=== PATIENT | male | born 1980 | race African-American/Black ===

== ENCOUNTER 2020-09-02 13:06 | Observation (INO) ==
--- NOTE | 2020-09-02 14:15 | XRay Report ---
XR chest 1V portable CLINICAL HISTORY: Atypical chest pain. COMPARISON STUDY: No previous studies for comparison. FINDINGS: Lung volumes are normal. Lungs are clear. There is no pneumothorax or pleural effusion. Car diac size is normal. Mediastinal contours are normal. There is no evidence for pulmonary edema. IMPRESSION: No acute cardiopulmonary findings. ACT 112: Negative or not required by law. Electronically signed by: Hair Sow M.D. 09/02/2020 2:14 PM
[2020-09-02 14:28] LABS: Basophils # (auto) 0.03 K/uL (0-0.2); Basophils % (auto) 0.4 %; Eosinophils # (auto) 0.21 K/uL (0-0.5); Eosinophils % (auto) 2.5 %; Hemoglobin 14.3 g/dL (14.0-18.0); Immature Granulocytes # (auto) 0.02 K/uL (0.00-0.02); Immature Granulocytes % (auto) 0.2 %; Lymphocytes # (auto) 3.03 K/uL (1.2-3.4); Lymphocytes % (auto) 35.9 %; Mean Corpuscular Hemoglobin 30.8 pg (25-34); Mean Corpuscular Volume 90.5 fL (80-100); Mean Platelet Volume 10.1 fL (7.4-10.4); Monocytes # (auto) 0.67 K/uL (0.11-0.59); Monocytes % (auto) 7.9 %; Neutrophils # (auto) 4.48 K/uL (1.4-6.5); Neutrophils % (auto) 53.1 %; Platelet Count 361 K/uL (130-400); RDW Coefficient of Variation 13.1 % (11.5-14.5); RDW Standard Deviation 43.5 fL (36.4-46.3); Red Blood Count 4.64 M/uL (4.7-6.1); White Blood Count 8.44 K/uL (4.8-10.8)
[2020-09-02] MEDS ORDERED: ASPIRIN 81 MG CHEW PO STA (14:33)
--- NOTE | 2020-09-02 14:40 | Emergency Department Note ---
History of Present Illness General Chief complaint: Chest Pain Stated complaint: CHEST [id number] HEADEDNESS-VERTIGO Time Seen by Provider: 09/02/20 14:15 Source: patient and family (Colleague is at the bedside and acted as the compliance administrator. I offered to use the language line but he would rather use his friend) Mode of arrival: ambulatory Limitations: no limitations History of Present Illness Maximum Pain Intensity: 3 This patient is a 40-year-old male who comes in after having an episode of chest pain that occurred around 11:00. 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 He said it felt like his vision was going in and out he felt lightheaded and dizzy like he might pass out he got extremely diaphoretic and short of breath. There is no radiation of the chest. He is feeling significantly better at present and appears in no distress saying he has 1 out of 10 chest pain he was seen at [facility] initially there and they got an EKG and worried that his blood pressure was high and sent him up here as well. The pain is not been pleuritic. He said no trauma or injury. He has had no Covid known or Covid vaccine. No lower extremity pain or swelling. No history of any similar. He is never had any cardiac work-up. Home Medications Medication Instructions Recorded Confirmed Type No Known Home Medications 09/02/20 09/02/20 History Allergies Allergy/AdvReac Type Severity Reaction Status Date / Time No Known Allergies Allergy Verified 09/02/20 15:10 Past Med/Surg History Medical History (Updated 09/02/20 @ 17:11 by Dameon Diaz MD) Medical history non-contributory Surgical History (Updated 09/02/20 @ 16:22 by KEITH Francisco) History of facial surgery Family History (Updated 09/02/20 @ 16:22 by KEITH Francisco) Father Coronary heart disease Diabetes Mother Coronary heart disease Hypertension Social History (Updated 09/02/20 @ 16:24 by KEITH Francisco) Smoking Status: Current every day smoker Tobacco Type: Cigarettes packs per day: 0.5; Hx Alcohol Use: Yes Preferred Language: Kiswahili Communication Tools: IPad Current Living Situation: Family Current Living Situation Comment: Lives in [place] current occupational status: employed current occupation: car painter Feels Safe at Home: Yes Immunizations: Past medical history-hypertension. Denies diabetes or increased cholesterol. No history of cardiac disease or blood clots Family historydenies cardiac disease in the family Social historyhe smokes 2 packs/week. Drinks occasionally. Denies drug use. He lives in [place]. Review of Systems A total of 10 systems reviewed and were otherwise negative Physical Exam Vital Signs Vital Signs - 24 hr 09/02/20 13:14 09/02/20 14:15 09/02/20 14:18 Temperature 36.6 C Temperature Source Temporal Artery Scan Pulse Rate 59 L 57 L Respiratory Rate 18 Blood Pressure 162/95 H Blood Pressure Mean 117 Pulse Oximetry 99 98 Oxygen Delivery Method Room Air Room Air Room Air Sepsis Recent Fever Within 48 Hours No Sepsis New/Unexplained Change in Mental Status No Sepsis Action Taken by Nursing No Action Required General: Well developed well nourished middle-aged male who appears in no acute distress, breathing comfortably on room air. Normal speech HEENT: Normal cephalic atraumatic. Pupils are equal round and reactive to light. Extraocular movements are intact. Oropharynx is pink with moist mucous membranes. No swelling of the mouth lips or tongue. Neck: Supple with a midline trachea. No meningeal signs or stiffness, no JVD or bruits. No Stridor. Chest: Clear to auscultation bilaterally. No wheezes or rhonchi. No increased work of breathing. Heart: Regular rate and rhythm without murmurs or gallops. Abdomen: Soft nontender, nondistended without rebound guarding or rigidity. Extremities: No cyanosis clubbing or edema. No calf tenderness or assymetry Spine/Back. Non tender to palpation. No CVA tenderness Skin: Good turgor without rashes. Neurologic exam: Cranial nerves two through 12 are intact. Motor and sensation are intact and symmetrical throughout. Course Administered Medications Discontinued Medications Aspirin (Aspirin 81 Mg Chew) 324 mg PO NOW STA Stop: 09/02/20 14:34 Last Admin: 09/02/20 14:43 Dose: 324 mg Documented by: [id number] Hydralazine HCl (Hydralazine Hcl 20 Mg/Ml Vial) 5 mg IV NOW ONE Stop: 09/02/20 16:33 Last Admin: 09/02/20 17:06 Dose: 5 mg Documented by: [id number] Potassium Chloride (Potassium Chloride Crtab 20 Meq Tabcr) 40 meq PO NOW STA Stop: 09/02/20 15:57 Last Admin: 09/02/20 17:07 Dose: 40 meq Documented by: [id number] Medical Decision Making Differential Diagnosis Acute coronary syndrome, arrhythmia, PE, dehydration, rhabdo, electrolyte or met abolic abnormality, Covid Medical Records Attestation: I reviewed the patient's medical records. Home Medications Current Medication List: was personally reviewed by me Laboratory Data Attestation: I reviewed the patient's lab results. Result diagrams: 09/02/20 14:17 09/02/20 14:17 Lab Results 09/02/20 09/02/20 09/02/20 Range/Units 14:17 14:17 14:17 WBC 8.44 (4.8-10.8) K/uL RBC 4.64 L (4.7-6.1) M/uL Hgb 14.3 (14.0-18.0) g/dL Hct 42.0 (42-52) % MCV 90.5 (80-100) fL MCH 30.8 (25-34) pg MCHC 34.0 (32-36) g/dL RDW Std Deviation 43.5 (36.4-46.3) fL RDW Coeff of Larisa 13.1 (11.5-14.5) % Plt Count 361 (130-400) K/uL MPV 10.1 (7.4-10.4) fL Immature Gran % (Auto) 0.2 % Neut % (Auto) 53.1 % Lymph % (Auto) 35.9 % [place] % (Auto) 7.9 % Eos % (Auto) 2.5 % Baso % (Auto) 0.4 % Neut # (Auto) 4.48 (1.4-6.5) K/uL Lymph # (Auto) 3.03 (1.2-3.4) K/uL [place] # (Auto) 0.67 H (0.11-0.59) K/uL Eos # (Auto) 0.21 (0-0.5) K/uL Baso # (Auto) 0.03 (0-0.2) K/uL Immature Gran # (Auto) 0.02 (0.00-0.02) K/uL PT 9.6 (9.0-12.0) Seconds INR 0.9 (0.9-1.1) APTT 28.5 (21.0-31.0) Seconds PTT Ratio 1.1 Sodium 141 (136-145) mmol/L Potassium 3.4 L (3.5-5.1) mmol/L Chloride 105 (98-107) mmol/L Carbon Dioxide 33 H (21-32) mmol/L Anion Gap 3.0 (3-11) BUN 15 (7-18) mg/dl Creatinine 1.05 (0.6-1.4) mg/dl Est Cr Clr Drug Dosing Not Reportable Est GFR ( Amer) 101.7 Est GFR (Non-Af Amer) 87.7 BUN/Creatinine Ratio 14.4 (10-20) Glucose 123 H (70-99) mg/dl Calcium 9.1 (8.5-10.1) mg/dl Magnesium 2.2 (1.8-2.4) mg/dl Total Bilirubin 0.3 (0.2-1) mg/dl AST 34 (15-37) U/L ALT 35 (12-78) U/L Alkaline Phosphatase 88 (45-117) U/L Troponin I < 0.015 (0-0.045) ng/ml Total Protein 7.9 (6.4-8.2) gm/dl Albumin 3.9 (3.4-5.0) gm/dl Globulin 4.0 (2.5-4.0) gm/dl Albumin/Globulin Ratio 1.0 (0.9-2) COVID-19 Eval Order SARS-CoV-2 (PCR) (Negative) Influenza Type A (PCR) (Neg) Influenza Type B (PCR) (Neg) RSV (RT-PCR) (Neg) 09/02/20 09/02/20 09/02/20 Range/Units 14:17 14:45 14:45 WBC (4.8-10.8) K/uL RBC (4.7-6.1) M/uL Hgb (14.0-18.0) g/dL Hct (42-52) % MCV (80-100) fL MCH (25-34) pg MCHC (32-36) g/dL RDW Std Deviation (36.4-46.3) fL RDW Coeff of Larisa (11.5-14.5) % Plt Count (130-400) K/uL MPV (7.4-10.4) fL Immature Gran % (Auto) % Neut % (Auto) % Lymph % (Auto) % [place] % (Auto) % Eos % (Auto) % Baso % (Auto) % Neut # (Auto) (1.4-6.5) K/uL Lymph # (Auto) (1.2-3.4) K/uL [place] # (Auto) (0.11-0.59) K/uL Eos # (Auto) (0-0.5) K/uL Baso # (Auto) (0-0.2) K/uL Immature Gran # (Auto) (0.00-0.02) K/uL PT (9.0-12.0) Seconds INR (0.9-1.1) APTT (21.0-31.0) Seconds PTT Ratio Sodium (136-145) mmol/L Potassium (3.5-5.1) mmol/L Chloride (98-107) mmol/L Carbon Dioxide (21-32) mmol/L Anion Gap (3-11) BUN (7-18) mg/dl Creatinine (0.6-1.4) mg/dl Est Cr Clr Drug Dosing Est GFR ( Amer) Est GFR (Non-Af Amer) BUN/Creatinine Ratio (10-20) Glucose (70-99) mg/dl Calcium (8.5-10.1) mg/dl Magnesium Cancelled (1.8-2.4) mg/dl Total Bilirubin (0.2-1) mg/dl AST (15-37) U/L ALT (12-78) U/L Alkaline Phosphatase (45-117) U/L Troponin I (0-0.045) ng/ml Total Protein (6.4-8.2) gm/dl Albumin (3.4-5.0) gm/dl Globulin (2.5-4.0) gm/dl Albumin/Globulin Ratio (0.9-2) COVID-19 Eval Order [facility]FluRsv at [facility] SARS-CoV-2 (PCR) NEGATIVE (Negative) Influenza Type A (PCR) Negative (Neg) Influenza Type B (PCR) Negative (Neg) RSV (RT-PCR) Negative (Neg) Imaging Data Attestation: I personally reviewed and interpreted this imaging study as fol lows: My Impression: Chest x-rayno acute infiltrate, failure, pneumothorax upon my interpretation Radiologist's Impression: Chest X-Ray 09/02/20 13:48 XR chest 1V portable CLINICAL HISTORY: Atypical chest pain. COMPARISON STUDY: No previous studies for comparison. FINDINGS: Lung volumes are normal. Lungs are clear. There is no pneumothorax or pleural effusion. Cardiac size is normal. Mediastinal contours are normal. There is no evidence for pulmonary edema. IMPRESSION: No acute cardiopulmonary findings. ACT 112: Negative or not required by law. Electronically signed by: Hair Sow M.D. 09/02/2020 2:14 PM ECG Data Attestation: I personally reviewed and interpreted this ECG as follows: Indication: + chest pain, + diaphoresis and + SOB/dyspnea Rate (beats per minute): 53 Rhythm: + sinus bradycardia ECG [place]: + Normal ECG ST segments: + T-wave inversions (Lateral) ECG Findings: no PACs and no PVCs Comparison ECG Date: no prior available MDM Narrative This patient comes in after having an episode of chest pain nausea and dizziness. His story is very concerning. He is a young healthy patient with hypertension and smoking as risk factors. I was concerned that his EKG shows some T wave inversions laterally. He has no ST segment elevations or depressions to suggest acute STEMI. His symptoms do not sound likely consistent with a PE as they are nonpleuritic and more typical. He was given aspirin 324 mg chewable. He was placed on a detail sergeant and multiple blood testing was obtained. IV access was established and chest x-ray and EKG were obtained. He was reassessed frequently. He is resting comfortably and appears in no distress. His chest x-ray is unremarkable does not show congestive heart failure, pneumonia, or pneumothorax. His EKG is concerning with the T wave inversions laterally however his troponin is not elevated. He has no signal electrolyte or metabolic abnormalities. Given his concerning story as well as his abnormal EKG, I do think he needs to be admitted/observe for further cardiac work-up and rule out. I have consulted Dr. Claudio Muhammad and his team to see the patient for these measures. Continuous cardiac monitoring: Due to the patient's chief complaint of chest pain he was placed on a detail sergeant and an order was placed in the electronic medical record. The patient was noted to be in sinus bradycardia with a rate of 55 Impression & Plan Chest pain, Acute electrocardiography changes, Diaphoresis, Dizziness, Lab test negative for COVID-19 virus Discharge Plan Visit Data Chief Complaint: Chest Pain Stated Complaint: CHEST [id number] HEADEDNESS-VERTIGO ED Provider: Dameon Diaz Discharge Problem: Chest pain, Acute electrocardiography changes, Diaphoresis, Dizziness, Lab test negative for COVID-19 virus Forms Stand Alone Forms: [facility] Prescriptions Prescriptions: No Action No Known Home Medications RF: 0 Discharge Problem: Chest pain Qualifiers: Chest pain type: precordial pain Qualified Code(s): R07.2 - Precordial pain
[2020-09-02 14:44] LABS: Alanine Aminotransferase 35 U/L (12-78); Albumin Level 3.9 gm/dl (3.4-5.0); Aspartate Aminotransferase 34 U/L (15-37); BUN Creatinine Ratio 14.4 (10-20); Blood Urea Nitrogen 15 mg/dl (7-18); Calcium 9.1 mg/dl (8.5-10.1); Carbon Dioxide 33 mmol/L (21-32); Chloride 105 mmol/L (98-107); Est GFR (African American) 101.7; Est GFR (Non-African American) 87.7; Glucose 123 mg/dl (70-99); Potassium 3.4 mmol/L (3.5-5.1); Sodium 141 mmol/L (136-145)
[2020-09-02 14:46] LABS: INR 0.9 (0.9-1.1); Partial Thromboplastin Ratio 1.1; Partial Thromboplastin Time 28.5 Seconds (21.0-31.0); Prothrombin Time 9.6 Seconds (9.0-12.0)
[2020-09-02 14:47] LABS: Bilirubin,Total 0.3 mg/dl (0.2-1); Total Protein 7.9 gm/dl (6.4-8.2)
[2020-09-02 14:49] LABS: Alkaline Phosphatase 88 U/L (45-117); Magnesium 2.2 mg/dl (1.8-2.4); Troponin I < 0.015 ng/ml (0-0.045)
[2020-09-02 15:31] LABS: Influenza A virus by PCR Negative (Neg); Influenza B virus by PCR Negative (Neg); RSV by PCR Negative (Neg); SARS CoV2 RNA(COVID-19) InHosp NEGATIVE (Negative)
--- NOTE | 2020-09-02 15:36 | History & Physical Report ---
Date of Service September 02, 2020 Assessment & Plan (1) Chest pain: Patient with risk factors of smoking, obesity, nonroutine medical care, HTN- with currently reproducible chest pain - Monitor telemetry, trend troponin I- next set will be long enough to be detected - ASA daily 81- for primary prevention - Blood pressure control overnight, IV hydralazine - BB not chosen as patient is bradycardic - ECG no comparison, nonspecific ST changes noted- ECG with troponins. - Pain free now - Stress test in the morning- NPO after midnight Risk factor modification - smoking cessation consult placed - Lipid panel pending in the morning- currently not on statin - HGBA1C in morning pending- likely type II not treated - BP control as above (2) HTN (hypertension): Likely long standing not controlled - ECHO to evaluate heart function and size - Hydralazine IV can tighten up dose and interval as needed - If difficult to control will add on Amlodipine 5mg PO - Will need PCP at [place] (3) Diaphoresis: Resolved- likely related to acute pain - no evidence of hypoperfusion on other organ symptoms - Skin is warm and dry (4) Obesity: No acute needs - education on diet, exercise and risk factor modification (5) Dizziness: Occurs frequently while working overhead - carotid artery Doppler - BP control, lipid panel, asa daily (6) Elevated glucose: Not followed and on no medications - HGB A1c in morning - fasting glucose in morning as patient will be NPO History of Present Illness Chief Complaint: Chest pain Primary Care Provider: NO PCP 40 YOM with unknown medical history, but smokes 2 packs of cigarettes a week, 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 His chest pain, dyspnea, blurred vision, and diaphoresis also all went away at the same time. He had to go up 6 flights of stairs to get to his work area this morning and has been doing this all week. He does get short of breath doing this and has to stop at least once to get there. The pain was sharp and stabbing in nature and was located under his left breast ~4-5 intercostal. He has not had this chest pain before. He normally has some shortness of breath secondary to a facial nasal surgery from an accident when he was younger. He can not lay flat at night as he gets short of breath and needs about 4-5 pillows to prop himself up. He notes his legs swelling up to lower third of calf at the end of the day, when he gets up in the morning they are normal again. He also induces that when he is working over head and looking up that he gets headache and the vision changes that he experienced today. He initially went to an urgent care, that referred him to the emergency room fo concerns for his BP. In the EMD the patient had a ECG, done, standard labs, and a chest x-ray. Hospitalist team was notified for admission. He is not on any medications, and does not have a PCP. Allergies Allergy/AdvReac Type Severity Reaction Status Date / Time No Known Allergies Allergy Verified 09/02/20 15:10 Home Medications Medication Instructions Recorded Confirmed Type No Known Home Medications 09/02/20 09/02/20 History amlodipine 5 mg PO DAILY #30 tab 09/03/20 Rx Past Med/Surg History Medical History (Updated 09/04/20 @ 00:09 by Chivo Ocampo) Medical history non-contributory Surgical History (Updated 09/02/20 @ 16:22 by KEITH Francisco) History of facial surgery Family History (Updated 09/02/20 @ 16:22 by KEITH Francisco) Father Coronary heart disease Diabetes Mother Coronary heart disease Hypertension Social History (Updated 09/02/20 @ 16:24 by KEITH Francisco) Smoking Status: Current every day smoker Tobacco Type: Cigarettes packs per day: 0.5; Cigarettes Per Day: 5; Hx Alcohol Use: Yes Hx Substance Use: No Preferred Language: Persian Communication Ability: Effective Communication Tools: IPad Command Center Officer Required: Yes Beliefs That Will Affect Care: None Current Living Situation: Family Current Living Situation Comment: Lives in [place] current occupational status: employed current occupation: house painter helper Feels Safe at Home: Yes Assistive Devices: None Review of Systems Review of Systems: REVIEW OF SYSTEMS: Constitutional: No fever, sweats or chills Eyes: (+) blurred vision this morning and when working overhead, No diplopia, no worsening or blurred vision ENT: normal hearing, no trouble swallowing Respiratory: (+) dyspnea at rest or on exertion, No cough, sputum, Cardiovascular: (+) chest pain, (-) tightness or palpitations Abdomen: No pain, nausea, vomiting, diarrhea or constipation Musculoskeletal: No joint pain, calf pain, swelling Neurologic: No weakness, numbness/tingling, or balance problems Psychiatric: No anxiety or depression Skin: No rash or itch Physical Exam Physical Exam: PHYSICAL EXAM: General: awake, alert, no apparent distress Head: Normocephalic, atraumatic ENT: PERRL, EOMI, no pharyngeal exudate, mucous membranes moist Neuro: AAO x 3, speech clear and appropriate, strength intact bilaterally 5/5, sensation intact and equal all extremities and dermatomes, no pronator drift Chest: equal rise and fall of the chest, no accessory muscle use, no heaves or thrills, Clear to auscultation, on room air, Cardiac: Chest pain reproducible with palpation at mammary fold intercostal, Regular rate and rhythm, telemetry reviewed, skin warm dry, cap refill <3 seconds, peripheral pulses +2 no JVD, no murmur, trace bilateral lower extremity edema. GI: NABS x 4 quadrants, soft, nontender to palpation, no rebound, guarding or tenderness : Spontaneously voiding, no pain, no CVA tenderness, Extremities: Normal inspection, no peripheral edema or erythema, calfs nontender to palpation Psych: Normal mood and affect Skin/extremities: no rash or erythema/ clubbing of fingernails Results & Data Results & Data ([facility]) Vital Signs (Past 12 Hours) Vital Signs Temp Pulse Resp BP Pulse Ox 09/02/20 14:15 57 L 98 09/02/20 13:14 36.6 C 59 L 18 162/95 H 99 Laboratory Results Abnormal lab results 09/02/20 09/02/20 Range/Units 14:17 14:17 RBC 4.64 L (4.7-6.1) M/uL [place] # (Auto) 0.67 H (0.11-0.59) K/uL Potassium 3.4 L (3.5-5.1) mmol/L Carbon Dioxide 33 H (21-32) mmol/L Glucose 123 H (70-99) mg/dl Diagnostic Findings XR chest 1V portable CLINICAL HISTORY: Atypical chest pain. COMPARISON STUDY: No previous studies for comparison. FINDINGS: Lung volumes are normal. Lungs are clear. There is no pneumothorax or pleural effusion. Cardiac size is normal. Mediastinal contours are normal. There is no evidence for pulmonary edema. IMPRESSION: No acute cardiopulmonary findings. Medications Administered Discontinued Medications Aspirin (Aspirin 81 Mg Chew) 324 mg PO NOW STA Stop: 09/02/20 14:34 Last Admin: 09/02/20 14:43 Dose: 324 mg Documented by: [id number] Additional Comments: Sinus bradycardia T wave abnormality, consider lateral ischemia Abnormal ECG Code Status & VTE Plan Code Status CODE: FULL VTE: Heparin 5000 subq TID VTE Prophylaxis Plan VTE Prophylaxis will be ordered: Yes Supervising Physician Co-Signing Physician Notes I personally saw and examined the patient. I verified all zaldivar points and agree with Jony PARKER with the following exceptions and/or additions: 40 year old male presents to the ER with chest pain. Severity 6/10. Associated diaphoresis. Chronically short of breath on exertion with associated orthopnea. O/E HS1+2, no murmurs, Chest CTAB, Abdo SNT, reproducible chest pain on palpation A/P Atypical chest pain - Currently pain free, serial troponins overnight, stress echo in AM if negative. HbA1C and lipid panel with Am labs. Hypertensive urgency - amlodipine 5mg PO daily, hydralazine PRN. PG Care Time/CCT Total # of Minutes Spent Total Time Spent with Patient: Total time spent is greater than 50% in coordination of care (as documented) at patient's floor/unit and/or counseling patient: Coding Level of Care Code 22335 OBS Care - Level 3 Medical Decision Making High Complexity Diagnoses Chest pain R07.2 Chest pain type: precordial pain HTN (hypertension) I10 Hypertension type: essential hypertension Diaphoresis R61 Obesity E66.09; Z68.30 Body mass index: BMI 30.0-30.9 Obesity classification: adult class 1 (BMI 30 - 34.9) Obesity type: due to excess calories Serious obesity comorbidity presence: without serious comorbidity Dizziness R42 Elevated glucose R73.09 (1) Chest pain Chest pain type: precordial pain Qualified Code(s): R07.2 - Precordial pain (2) HTN (hypertension) Hypertension type: essential hypertension Qualified Code(s): I10 - Essential (primary) hypertension (3) Obesity Body mass index: BMI 30.0-30.9 Obesity classification: adult class 1 (BMI 30 - 34.9) Obesity type: due to excess calories Serious obesity comorbidity presence: without serious comorbidity Qualified Code(s): E66.09 - Other obesity due to excess calories; Z68.30 - Body mass index [BMI]30.0-30.9, adult
[2020-09-02] MEDS ORDERED: POTASSIUM CHLORIDE CRTAB 20 MEQ TABCR PO STA (15:56)
[2020-09-02] MEDS ORDERED: hydrALAZINE HCL 20 MG/ML VIAL IV ONE (16:32)
[2020-09-02] MEDS ORDERED: POLYETHYLENE (MIRALAX) 17 GM PACK PO PRN (18:36)
[2020-09-02] MEDS ORDERED: hydrALAZINE HCL 20 MG/ML VIAL IV PRN ×2 (18:36→19:10)
[2020-09-02] MEDS ORDERED: ONDANSETRON INJ 2 MG/ML 2 ML VIAL IV PRN (18:36)
[2020-09-02] MEDS ORDERED: NITROGLYCERIN SL 0.4 MG/TAB TAB SL PRN (18:36)
[2020-09-02] MEDS ORDERED: ACETAMINOPHEN 325 MG TAB PO PRN (18:36)
[2020-09-02] MEDS ORDERED: hydrALAZINE HCL 20 MG/ML VIAL IV STA (19:08)
[2020-09-02] MEDS ORDERED: amLODIPine BESYLATE 5 MG TAB PO ONE (19:11)
[2020-09-02] MEDS ORDERED: hydrALAZINE HCL 20 MG/ML VIAL ONE (19:13)
[2020-09-02] MEDS: HEPARIN SOD 5,000 UNIT/0.5 ML VIAL SQ SCH (20:01)
--- NOTE | 2020-09-02 20:49 | Ultrasound Report ---
US carotid doppler BI CLINICAL HISTORY: 40 years-old Male with dizziness when working overhead. Acute dizziness COMPARISON: None TECHNIQUE: Multiple real time sonographic images of the carotid bifurcations were obtained assessing garces scale, color Doppler and spectral wave form appearance FINDINGS: RIGHT CAROTID: The peak systolic velocity measured within the right ICA is106 cm/sec. The end diast olic velocity measured 37 cm/sec. The ICA to CCA ratio measured 1.0 which correlates with a stenosis of 0-50%. No significant atherosclerotic plaque. LEFT CAROTID: The peak systolic velocity measured within the left ICA is76 cm/sec. The end diastoli c velocity measured 32 cm/sec. The ICA to CCA ratio measured 0.7 which correlates with a stenosis of 0-50%. No significant atherosclerotic plaque. There is normal antegrade vertebral flow bilaterally. Blood pressure on the right measured at 198/132 and on the left measured at 186/142. IMPRESSION: 1. No hemodynamically significant stenosis or significant atherosclerotic plaquing. 2. Normal antegrade vertebral flow bilaterally. 3. Elevated blood pressure. ACT 112: Negative or not required by law. The above report was generated using voice recognition software. It may contain grammatical, syntax o r spelling errors. Electronically signed by: Bubba Vo M.D. 09/02/2020 8:48 PM
[2020-09-03 04:11] LABS: Basophils # (auto) 0.01 K/uL (0-0.2); Basophils % (auto) 0.1 %; Eosinophils # (auto) 0.25 K/uL (0-0.5); Hematocrit (blood only) 41.3 % (42-52); Hemoglobin 13.7 g/dL (14.0-18.0); Immature Granulocytes # (auto) 0.02 K/uL (0.00-0.02); Immature Granulocytes % (auto) 0.2 %; Lymphocytes % (auto) 34.8 %; Mean Corpuscular Hemoglobin 29.7 pg (25-34); Mean Corpuscular Hgb Conc 33.2 g/dL (32-36); Mean Corpuscular Volume 89.6 fL (80-100); Mean Platelet Volume 9.7 fL (7.4-10.4); Monocytes # (auto) 0.69 K/uL (0.11-0.59); Monocytes % (auto) 8.3 %; Neutrophils # (auto) 4.47 K/uL (1.4-6.5); Neutrophils % (auto) 53.6 %; Platelet Count 315 K/uL (130-400); RDW Coefficient of Variation 12.9 % (11.5-14.5); RDW Standard Deviation 41.8 fL (36.4-46.3); Red Blood Count 4.61 M/uL (4.7-6.1); White Blood Count 8.34 K/uL (4.8-10.8)
[2020-09-03 04:28] LABS: BUN Creatinine Ratio 13.6 (10-20); Blood Urea Nitrogen 14 mg/dl (7-18); Calcium 8.7 mg/dl (8.5-10.1); Carbon Dioxide 30 mmol/L (21-32); Chloride 107 mmol/L (98-107); Est GFR (African American) 107.9; Est GFR (Non-African American) 93.1; Glucose 106 mg/dl (70-99); Magnesium 2.1 mg/dl (1.8-2.4); Potassium 3.9 mmol/L (3.5-5.1); Sodium 142 mmol/L (136-145)
[2020-09-03 04:31] LABS: Chol HDL Ratio 2; Cholesterol 112 mg/dl (0-200); HDL Cholesterol 49 mg/dl; LDL Cholesterol Calculated 54 mg/dl; Triglycerides 44 mg/dl (0-150); VLDL Cholesterol 9 mg/dl
[2020-09-03 06:21] LABS: Estimated Average Glucose 126 mg/dl
--- NOTE | 2020-09-03 06:38 | Electrocardiogram Report ---
Test Reason : Blood Pressure : / mmHG Vent. Rate : 053 BPM Atrial Rate : 053 BPM P-R Int : 182 ms QRS Dur : 086 ms QT Int : 412 ms P-R-T Axes : 053 042 126 degrees QTc Int : 386 ms Sinus bradycardia T wave abnormality, consider lateral ischemia Abnormal ECG No previous ECGs available Confirmed by Juanjose Figueroa ([id number]) on 09/03/2020 6:37:33 AM Referred By: REFERRED SELF Confirmed By:Juanjose Figueroa
[2020-09-03] MEDS ORDERED: ASPIRIN 81 MG ECTAB PO SCH (09:00)
[2020-09-03] MEDS: HEPARIN SOD 5,000 UNIT/0.5 ML VIAL SQ SCH (10:08)
--- NOTE | 2020-09-03 10:40 | XCELERA ---
[id number]
[2020-09-03] MEDS ORDERED: amLODIPine BESYLATE 5 MG TAB PO STA (11:12)
--- NOTE | 2020-09-03 12:18 | Discharge Summary ---
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 His chest pain, dyspnea, blurred vision, and diaphoresis also all went away at the same time. He had to go up 6 flights of stairs to get to his work area this morning and has been doing this all week. He does get short of breath doing this and has to stop at least once to get there. The pain was sharp and stabbing in nature and was located under his left breast ~4-5 intercostal. He has not had this chest pain before. He normally has some shortness of breath secondary to a facial nasal surgery from an accident when he was younger. He can not lay flat at night as he gets short of breath and needs about 4-5 pillows to prop himself up. He notes his legs swelling up to lower third of calf at the end of the day, when he gets up in the morning they are normal again. He also induces that when he is working over head and looking up that he gets headache and the vision changes that he experienced today. He initially went to an urgent care, that referred him to the emergency room fo concerns for his BP. In the EMD the patient had a ECG, done, standard labs, and a chest x-ray. Hospitalist team was notified for admission. He is not on any medications, and does not have a PCP. Admission Exam Per Admitting Provider General: awake, alert, no apparent distress Head: Normocephalic, atraumatic ENT: PERRL, EOMI, no pharyngeal exudate, mucous membranes moist Neuro: AAO x 3, speech clear and appropriate, strength intact bilaterally 5/5, sensation intact and equal all extremities and dermatomes, no pronator drift Chest: equal rise and fall of the chest, no accessory muscle use, no heaves or thrills, Clear to auscultation, on room air, Cardiac: Chest pain reproducible with palpation at mammary fold intercostal, Regular rate and rhythm, telemetry reviewed, skin warm dry, cap refill <3 seconds, peripheral pulses +2 no JVD, no murmur, trace bilateral lower extremity edema. GI: NABS x 4 quadrants, soft, nontender to palpation, no rebound, guarding or tenderness : Spontaneously voiding, no pain, no CVA tenderness, Extremities: Normal inspection, no peripheral edema or erythema, calfs nontender to palpation Psych: Normal mood and affect Skin/extremities: no rash or erythema/ clubbing of fingernails Principal Diagnosis Atypical chest pain Hypertensive urgency Discharge Exam Constitutional well developed and well nourished; no acute distress Eyes + anicteric sclerae; normal pupil size ENMT external ear and nose normal, oropharynx normal Respiratory normal respiratory effort, lungs clear to auscultation Cardiovascular RRR, no murmur, no edema Musculoskeletal no cyanosis or clubbing, extremities motor strength 5/5 Skin no rashes, warm and dry Neurologic moves all extremities and awake; not confused Psychiatric A+Ox3, euthymic affect Discharge Data Allergies Allergy/AdvReac Type Severity Reaction Status Date / Time No Known Allergies Allergy Verified 09/02/20 15:10 Consultations 09/02/20 14:56 ED Decision to Admit Stat Ordered Studies 09/02/20 18:36 US carotid doppler BI FINDINGS: RIGHT CAROTID: The peak systolic velocity measured within the right ICA is106 cm/sec. The end diastolic velocity measured 37 cm/sec. The ICA to CCA ratio measured 1.0 which correlates with a stenosis of 0-50%. No significant atheros clerotic plaque. LEFT CAROTID: The peak systolic velocity measured within the left ICA is76 cm/sec. The end diastolic velocity measured 32 cm/sec. The ICA to CCA ratio measured 0.7 which correlates with a stenosis of 0-50%. No significant atherosclerotic plaque. There is normal antegrade vertebral flow bilaterally. Blood pressure on the right measured at 198/132 and on the left measured at 186/142. IMPRESSION: 1. No hemodynamically significant stenosis or significant atherosclerotic plaquing. 2. Normal antegrade vertebral flow bilaterally. 3. Elevated blood pressure. Hospital Course (1) Chest pain: Sebastian Saldana is a 40 year old male observed overnight at [facility] from September 02-2020 for chest pain. Acute coronary syndrome was ruled out with serial troponins and negative stress echocardiogram. Suspected musculoskeletal given reproducibility on exam. His blood pressure was notably elevated, highest 206/130. He does not seek routine medical care therefore suspected to be somewhat chronic. He was started on amlodipine 5mg PO daily and advised to establish and follow up with a primary care provider for further primary prevention. Notably HbA1c 6.0 showed he is at risk of diabetes and dietary recommendations discussed with the patient and his . (2) HTN (hypertension): (3) Diaphoresis: (4) Obesity: (5) Dizziness: (6) Elevated glucose: Total Time Total Time Spent Total Time Spent (In Minutes): 35 Discharge Plan Discharge Items Patient Disposition: Home - Self-Care Reason For Visit: CHEST PAIN Discharge Diagnosis: Atypical chest pain - suspected musculoskeletal Activity: Resume your previous activity Non-emergency contact: Primary Care Provider Call non-emergency contact if: you have any medication questions and your symptoms worsen Follow-up/Referrals: PCPLACHELLE [Primary Care Provider] - Diet: Heart Healthy and Low Sodium (2gm) Addtl Attending Provider Instructions: You were observed overnight [facility] from September 02-2020 for chest pain. Heart attack was ruled out with serial troponins. Stress echocardiogram was negative for ischemia suggestive this chest pain is not coming from your heart. Given reproducibility on palpation You were also noticed to have excessively high blood pressure called hypertensive urgency. This you were treated with antihypertensive medications and will be started on amlodipine on discharge. Please establish with a primary care provider on discharge for further management of this. Lab tests also showed you are at risk of diabetes with HbA1c 6.0. Recommend reducing short-acting carbohydrates in your diet. I suspect your generalized fatigue and shortness of breath are secondary to deconditioning and hypertension but also recommend following up with your primar y care physician regarding this. Kind regards, Dr. Claudio Muhammad Pending Studies at Discharge: No Stand-Alone Forms: My [facility], Smoking Cessation Medications and DC Order Prescriptions: New amlodipine 5 mg tablet 5 mg PO DAILY Qty: 30 RF: 0 No Action No Known Home Medications RF: 0 Discharge Orders: Discharge Order (Routine); Ordered 09/03/20 Ordered By: Claudio Frey/Other Patient Handouts: Prediabetes, 5 Steps for Eating Healthier, A1C Admission Data Admit Date/Time: 09/02/20 16:44 Attending Provider: Claudio Muhammad Admit Provider: Claudio Muhammad Primary Care Provider: PCP,NO Other Providers: Claudio Muhammad Other Interventions: Discharge Summary Assessment (RN) Last Done: 09/03/20 11:23 Coding Level of Care Code 72375 OBS Care - Discharge Diagnoses Chest pain R07.2 Chest pain type: precordial pain HTN (hypertension) I10 Hypertension type: essential hypertension Diaphoresis R61 Obesity E66.09; Z68.30 Body mass index: BMI 30.0-30.9 Obesity classification: adult class 1 (BMI 30 - 34.9) Obesity type: due to excess calories Serious obesity comorbidity presence: without serious comorbidity Dizziness R42 Elevated glucose R73.09
--- NOTE | 2020-09-04 06:06 | Electrocardiogram Report ---
Test Reason : Blood Pressure : / mmHG Vent. Rate : 064 BPM Atrial Rate : 064 BPM P-R Int : 170 ms QRS Dur : 086 ms QT Int : 386 ms P-R-T Axes : 069 063 092 degrees QTc Int : 398 ms Normal sinus rhythm T wave abnormality, consider lateral ischemia Abnormal ECG When compared with ECG of 02-SEP-2020 13:18, No significant change was found Confirmed by Juanjose Figueroa ([id number]) on 09/04/2020 6:06:17 AM Referred By: REFERRED SELF Confirmed By:Juanjose Figueroa
--- NOTE | 2020-09-04 06:14 | Electrocardiogram Report ---
Test Reason : Blood Pressure : / mmHG Vent. Rate : 068 BPM Atrial Rate : 068 BPM P-R Int : 178 ms QRS Dur : 088 ms QT Int : 414 ms P-R-T Axes : 066 056 083 degrees QTc Int : 440 ms Normal sinus rhythm T wave abnormality, consider lateral ischemia Abnormal ECG When compared with ECG of 02-SEP-2020 21:42, No significant change was found Confirmed by Juanjose Figueroa ([id number]) on 09/04/2020 6:14:15 AM Referred By: REFERRED SELF Confirmed By:Juanjose Figueroa
== END 2020-09-03 12:17 | disposition home or self-care (01) ==
LOC: 2N 13:06 → ED 13:06 → 2N 18:15